=== PATIENT | female | born 1990 | race Caucasian/White ===

== ENCOUNTER 2016-05-01 05:26 | Emergency (ER) | payer MEDICAID ==
[~2016-05-01] VITALS: Ht 167.6 cm; Wt 109.3 kg
[2016-05-01 05:37] VITALS: BP 148/95
[2016-05-01 08:15] LABS: Urine Bilirubin Negative (Negative); Urine Blood Negative /uL (Negative); Urine Color Yellow (Yellow); Urine Glucose Normal (Normal); Urine Ketone Negative (Negative); Urine Nitrite Negative (Negative); Urine RBC <1 /hpf (0 - 4); Urine Squamous Epithelial Cell MOD /hpf (<5); Urine Urobilinogen Normal (Negative); Urine pH 6.5 (5.0-8.0)
== END 2016-05-01 06:52 | disposition left against medical advice (07) ==
LOC: ER 05:27
DX: M54.9 Dorsalgia, unspecified (principal); Z53.21 Procedure and treatment not carried out due to patient leaving prior to being seen by health care provider
CPT/HCPCS: 81001

== ENCOUNTER 2023-06-02 12:15 | Emergency (ER) | payer MEDICAID ==
[~2023-06-02] VITALS: Ht 167.6 cm; Wt 102.5 kg
[2023-06-02 14:01] VITALS: BP 132/89; PULSE 102; RESP 17; TEMP 97.6; O2SAT 98
[2023-06-02] MEDS: KETOROLAC TROMETH 60MG/2ML VIAL IM ONE (14:33)
[2023-06-02] MEDS ORDERED: METH-1182 PO (14:35)
[2023-06-02] MEDS ORDERED: IBUP-1456 PO (14:35)
== END 2023-06-02 14:48 | disposition home or self-care (01) ==
LOC: ER 12:15
DX: S39.012A Strain of muscle, fascia and tendon of lower back, initial encounter (principal); X58.XXXA Exposure to other specified factors, initial encounter; Y93.9 Activity, unspecified; Y92.89 Other specified places as the place of occurrence of the external cause; Y99.8 Other external cause status
CPT/HCPCS: 81002; 96372; 99283; J1885

== ENCOUNTER 2024-03-10 12:24 | Inpatient (IN) | payer MEDICAID ==
[~2024-03-10] VITALS: Ht 167.6 cm; Wt 103.3 kg
[~2024-03-10 12:24] MED LIST: IBUP-1456 PO; METH-1182 PO
--- NOTE | 2024-03-10 13:54 | ED.PDOC ---
History of Present Illness HPI Comments 34F presents to the ER w/ no prior Hx associated to the c/c of a right neck mass. Pt reports on waking up 2 weeks ago with a lump that was the size of a quarter 2 weeks ago on the right side of the neck. Patient states the mass progressively enlarged, became red and painful over the next 2 weeks. Pt reports burning and itching sensation to that area as well. She denies any difficulty breathing or difficulty swallowing. Social Hx of marijuana use, but denies tobacco and alcohol use. Denies chills, fever, N/V/D, SOB, CP or other associated symptoms, modifiers, or recent injuries at this time. Chief Complaint: Abscess Time Seen by MD: 13:45 Primary Care Provider: LEANDERK Reviewed Notes: Nurses Notes, Medications, Allergies Allergies: Coded Allergies: NO KNOWN ALLERGIES (Unverified , 06/02/23) Home Meds Active Scripts Methocarbamol (Methocarbamol) 750 Mg Tab, 750 MG PO BID, #20 TAB Prov:NICOLE RIOS 06/02/23 Ibuprofen (Ibuprofen) 800 Mg Tab, 1 TAB PO TID, #30 TAB Prov:NICOLE RIOS 06/02/23 Information Source: Patient Mode of Arrival: Ambulatory Severity: Moderate Timing: Weeks Duration: Since onset Prehospital treatment: None Past Medical History PAST MEDICAL HISTORY: Denies Surgical History: Denies all surgeries WHARF TALLY CLERK History: No Pertinent WHARF TALLY CLERK History Family History Family History: Reviewed,noncontributory to illness, Unknown Social History Smoker: Non-Smoker Alcohol: Denies ETOH Use Drugs: Denies Drug Use Lives In: Home Constitutional: reports: others (abscess); denies: chills, diaphoresis, fatigue, fever, malaise, sweats, weakness EENTM: denies: blurred vision, double vision, ear bleeding, ear discharge, ear drainage, ear pain, ear ringing, eye pain, eye redness, hearing loss, mouth pain, mouth swelling, nasal discharge, nose bleeding, nose congestion, nose pain, photophobia, tearing, throat pain, throat swelling, voice changes, others Respiratory: denies: cough, hemoptysis, orthopnea, SOB at rest, shortness of breath, SOB with excertion, stridor, wheezing, others Cardiovascular: denies: chest pain, dizzy spells, diaphoresis, Dyspnea on exertion, edema, irregular heart beat, left arm pain, lightheadedness, palpitations, PND, syncope, others Gastrointestinal: denies: abdomen distended, abdominal pain, blood streaked bowels, constipated, diarrhea, dysphagia, difficulty swallowing, hematemesis, melena, nausea, poor appetite, poor fluid intake, rectal bleeding, rectal pain, vomiting, others Genitourinary: denies: abnormal vagina bleeding, burning, dyspareunia, dysuria, flank pain, frequency, hematuria, incontinence, pain, , vagina discharge, urgency, others Neurological: denies: dizziness, fainting, headache, left sided numbness, left sided weakness, numbness, paresthesia, pre-existing deficit, right sided numbness, right sided weakness, seizure, speech problems, tingling, tremors, weakness, others Musculoskeletal: denies: back pain, gout, joint pain, joint swelling, muscle pain, muscle stiffness, neck pain, others Integumetry: denies: bruises, change in color, change in hair/nails, dryness, laceration, lesions, lumps, rash, wounds, others Allergic/Immunocompromised: denies: Difficulty Healing, Frequent Infections, Hives, Itching, others Hematologic/Lymphatic: denies: anemia, blood clots, easy bleeding, easy bruising, swollen glands, others Endocrine: denies: excessive hunger, excessive sweating, excessive thirst, excessive urination, flushing, intolerance to cold, intolerance to heat, unexplained weight gain, unexplained weight loss, others Psychiatric: denies: anxiety, bipolar disorder, depression, hopeless, panic disorder, schizophrenia, sleepless, suicidal, others All Other Systems: Reviewed and Negative Physical Exam General Appearance: Mild Distress HEENT: Other (Pupils symmetric, moist mucous membranes) Neck: Other (No posterior midline tenderness. Right neck approximate 5x5 cm erythematous, tender, firm mass. No fluctuance or discharge.) Respiratory: Lungs Clear, No Accessory Muscle Use, No Respiratory Distress, Normal Breath Sounds Cardiovascular: No Edema, No JVD, Regular Rate/Rhythm Breast Exam: Deferred Gastrointestinal: Non Tender, Soft Genitalia: Deferred Pelvic: Deferred Rectal: Deferred Extremities: Normal inspection, Normal range of motion, Non-tender, No pedal edema Neurologic: Alert (Oriented x4), Other (Anxious and tearful. Ambulatory without difficulty. No gross focal deficit.) Cerebellar Function: NOT DONE Reflexes: NOT DONE Skin: Dry, Warm, Other (Right lateral neck approximate 5x5 cm erythematous tender mass, no fluctuance or discharge) Lymphatic: NOT DONE Was a procedure done? Was a procedure done?: No Differential Dx Considerations may include: Abscess, neoplasm, sepsis, among others X-Ray, Labs, Meds, VS Vital Signs Date Time Temp Pulse Resp B/P (MAP) Pulse Ox O2 Delivery O2 Flow Rate FiO2 03/10/24 15:41 109 24 126/65 03/10/24 15:25 104 18 98 Room Air* 0 21 03/10/24 14:36 100 20 146/78 (100) 98 03/10/24 14:36 100 19 98 Room Air* 0 21 03/10/24 14:26 90 18 146/78 03/10/24 13:08 98.2 104 26 138/105 (116) 98 Lab Test 03/10/24 14:06 Range/Units White Blood Count 14.4 H 4.4-10.8 10^3/uL Red Blood Count 4.79 4.0-5.20 10^6/uL Hemoglobin 14.0 12.2-16.2 g/dL Hematocrit 42.4 36.0-46.0 % Mean Corpuscular Volume 88.6 80.0-100.0 fL Mean Corpuscular Hemoglobin 29.3 28.0-32.0 pg Mean Corpuscular Hemoglobin Concent 33.1 32.0-36.0 g/dL Red Cell Distribution Width 13.1 11.8-14.3 % Platelet Count 349 140-450 10^3/uL Mean Platelet Volume 7.7 6.9-10.8 fL Neutrophils (%) (Auto) 77.0 37.0-80.0 % Lymphocytes (%) (Auto) 14.8 10.0-50.0 % Monocytes (%) (Auto) 7.4 0.0-12.0 % Eosinophils (%) (Auto) 0.5 0.0-7.0 % Basophils (%) (Auto) 0.3 0.0-2.0 % Neutrophils # (Auto) 11.1 H 1.6-8.6 10 ^3/uL Lymphocytes # (Auto) 2.1 0.4-5.4 10 ^3/uL Monocytes # (Auto) 1.1 0-1.3 10 ^3/uL Eosinophils # (Auto) 0.1 0-0.8 10 ^3/uL Basophils # (Auto) 0 0-0.2 10 ^3/uL Nucleated Red Blood Cells 0.0 % Prothrombin Time 10.8 9.3-11.8 sec Prothrombin Time INR 1.02 0.9-1.15 Activated Partial Thromboplast Time 28.8 24.5-34.5 SEC Sodium Level 134 L 136-145 mmol/L Potassium Level 4.6 3.5-5.1 mmol/L Chloride Level 99 98-107 mmol/L Carbon Dioxide Level 29 20-31 mmol/L Anion Gap 6 5-15 Blood Urea Nitrogen 14 9-23 mg/dL Creatinine 0.79 0.550-1.02 mg/dL Glomerular Filtration Rate Calc 100 >90 mL/min BUN/Creatinine Ratio 17.7 10.0-20.0 Serum Glucose 98 74-106 mg/dL Calcium Level 9.7 8.7-10.4 mg/dL Beta HCG, Quantitative < 0.0 L 1.5-4.2 mIU/mL Current Medications Medications (Trade) Dose Ordered Sig/Danielle Route Start Time Stop Time Status Last Admin Morphine Sulfate 4 mg ONCE ONCE IV 03/10/24 14:00 03/10/24 14:01 DC 03/10/24 14:26 Ondansetron HCl (Zofran) 4 mg ONCE ONCE IV 03/10/24 14:00 03/10/24 14:01 DC 03/10/24 14:24 Sodium Chloride 1,000 ml @ 1,000 mls/hr Q1H ONCE IV 03/10/24 14:00 03/10/24 14:59 DC 03/10/24 14:28 Piperacillin Sod/ Tazobactam Sod 100 ml @ 100 mls/hr ONCE ONCE IV 03/10/24 14:00 03/10/24 14:59 DC 03/10/24 14:28 Vancomycin HCl 250 ml @ 250 mls/hr ONCE ONCE IV 03/10/24 14:00 03/10/24 14:59 DC 03/10/24 15:06 Diphtheria/ Tetanus/Acell Pertussis (Boostrix T-Dap) 0.5 ml ONCE ONCE IM 03/10/24 14:00 03/10/24 14:01 DC 03/10/24 14:27 PROCEDURE(s): NKICT - NECK WITHOUT CONTRAST REASON: eval r neck mass ORDER NUMBER(s): [id number], ACCESSION NUMBER(s): [id number] _ Procedure: CT NECK WITHOUT CONTRAST Study Date and Requested Time: 03/10/2024 03:16 PM History: eval r neck mass Comparison: None Dose: CTDI: 17.81 mGy DLP: 485.68 mGycm Technique: Multiplanar images obtained through the neck without contrast Findings: 5 x 4.5 x 4.8 cm ill-defined mass of the right neck with adjacent fat stranding position posterior to the right sternocleidomastoid at the level of C3-C5. The lesion involves the superficial aponeurosis with lateral extension to abut the adjacent skin which demonstrates asymmetric skin thickening . There is associated right neck soft tissue edema. The lesion appears inseparable from the posterior sternocleidomastoid on current noncontrast study with asymmetric prominence of the right sternocleidomastoid c ompared to the left. There is associated right-sided prominent lymph nodes measuring up to 1.2 cm which may be reactive or neoplastic . Subcentimeter left-sided neck nodes are noted. Nasopharynx, oropharynx, hypopharynx, and larynx normal in caliber without evidence of focal mass. Parotid, submandibular, and sublingual glands within normal limits. Tongue within normal limits. Thyroid gland within normal limits. No evidence of superior mediastinal lymphadenopathy. No destructive osseous lesions noted. Impression: 5 x 4.5 x 4.8 cm ill-defined right neck mass which does not measure simple fluid with adjacent fat stranding posterior to the sternocleidomastoid muscle with asymmetric prominence of the right sternocleidomastoid muscle. Contrast-enhanced imaging is recommended for further evaluation. X-Ray, Labs, Meds, VS Comment 34-year-old female with no significant past history complaining of a progressively enlarging right neck mass over the past 2 weeks Vitals remarkable for heart rate 104, respirations 26, BP 138/105 Exam remarkable for approximate 5 x 5 cm cm tender erythematous right neck mass CT neck without contrast: Impression: 5 x 4.5 x 4.8 cm ill-defined right neck mass which does not measure simple fluid with adjacent fat stranding posterior to the sternocleidomastoid muscle with asymmetric prominence of the right sternocleidomastoid muscle. Contrast-enhanced imaging is recommended for further evaluation. CT neck soft tissue with IV contrast: Pending Patient treated with the following in the ED: 1 L 0.9 normal saline IV bolus, Zosyn 4.5 g IV, vancomycin 1 g IV, morphine 4 mg IV, Zofran 4 mg IV, Tdap 0.5 mL IM On re-evaluation, patient states pain has slightly improved. Vitals were stable. Plan is to admit the patient for IV antibiotics and surgical evaluation. Time of 1ST Reevaluation: 14:15 Reevaluation 1ST: Unchanged Patient Education/Counseling: Diagnosis, Treatment, Prognosis Family Education/Counseling: No Family Present Additional Information I reviewed the following notes from the pt's past medical encounters: 06/02/23 The following tests were ordered, and results were reviewed by me: labs, LAB and CT I reviewed and agreed with the following test results read by other providers: CT I discussed treatments and results with medical personnel and: (consultants, fam, etc) Departure 1 Departure Time of Disposition: 16:34 Impression: Primary Impression: Mass of right side of neck Additional Impression: Cellulitis and abscess of neck Disposition: ADMITTED INPATIENT Admit to: Med Surg Condition: Guarded Critical Care Note Critical Care Time?: No Stability Stability form required: No Heart Score Heart Score: Heart Score Response (Comments) Value History N/A 0 EKG N/A 0 Age N/A 0 Risk Factors N/A 0 Troponin N/A 0 Total 0 I personally scribed for KASHMIR SALINAS MD ([email or web address]) on 03/10/24 at 13:54. Electronically submitted by Rosalio Bills ([email or web address]). KASHMIR SALINAS MD Mar 10, 2024 13:54
[2024-03-10] MEDS: ONDANSETRON HCL 4 MG/2 ML VIAL IV ONE (14:24)
[2024-03-10] MEDS: MORPHINE SULFATE 4 MG/ML SYR/VIAL IV ONE ×2 (14:26→17:08)
[2024-03-10] MEDS: TETANUS-DIPTH-ACEL PERTUSSIS 0.5ML SYR Tdap IM ONE (14:27)
[2024-03-10] MEDS: SODIUM CHLORIDE 0.9% 1,000 ML IV ONE (14:28)
[2024-03-10] MEDS: PIPERACILLIN-TAZO 4.5GM 100 ML IV ONE (14:28)
[2024-03-10 14:36] VITALS: PULSE 100; RESP 19; O2SAT 98
[2024-03-10 14:38] LABS: Basophils # (auto) 0 10 ^3/uL (0-0.2); Basophils % (auto) 0.3 % (0.0-2.0); Eosinophils # (auto) 0.1 10 ^3/uL (0-0.8); Eosinophils % (auto) 0.5 % (0.0-7.0); Hematocrit 42.4 % (36.0-46.0); Lymphocytes # (auto) 2.1 10 ^3/uL (0.4-5.4); Lymphocytes % (auto) 14.8 % (10.0-50.0); Mean Corpuscular Hemoglobin 29.3 pg (28.0-32.0); Mean Corpuscular Hgb Conc. 33.1 g/dL (32.0-36.0); Mean Corpuscular Volume 88.6 fL (80.0-100.0); Monocytes # (auto) 1.1 10 ^3/uL (0-1.3); Monocytes % (auto) 7.4 % (0.0-12.0); Neutrophils # (auto) 11.1 10 ^3/uL (1.6-8.6); Platelet Count (auto) 349 10^3/uL (140-450); Red Blood Cells 4.79 10^6/uL (4.0-5.20); Red Cell Distribution Width 13.1 % (11.8-14.3); White Blood Cell 14.4 10^3/uL (4.4-10.8)
[2024-03-10 14:49] LABS: Chloride 99 mmol/L (98-107); INR 1.02 (0.9-1.15); Partial Thromboplastin Time 28.8 SEC (24.5-34.5); Potassium 4.6 mmol/L (3.5-5.1); Prothrombin Time 10.8 sec (9.3-11.8)
[2024-03-10 14:50] LABS: Anion Gap 6 (5-15); Calcium 9.7 mg/dL (8.7-10.4); Carbon Dioxide 29 mmol/L (20-31)
[2024-03-10 14:55] LABS: BUN/Creatinine Ratio 17.7 (10.0-20.0); Blood Urea Nitrogen 14 mg/dL (9-23); Glucose 98 mg/dL (74-106)
[2024-03-10 14:57] LABS: Sodium 134 mmol/L (136-145)
[2024-03-10] MEDS: VANCOMYCIN 1GM/250ML KIT 250 ML IV ONE (15:06)
[2024-03-10 15:25] VITALS: PULSE 104; RESP 18; O2SAT 98
--- NOTE | 2024-03-10 16:13 | DVH ---
_ Procedure: CT NECK WITHOUT CONTRAST Study Date and Requested Time: 03/10/2024 03:16 PM History: eval r neck mass Comparison: None Dose: CTDI: 17.81 mGy DLP: 485.68 mGycm Technique: Multiplanar images obtained through the neck without contrast Findings: 5 x 4.5 x 4.8 cm ill-defined mass of the right neck with adjacent fat stranding position posterior to the right sternocleidomastoid at the level of C3-C5. The lesion involves the superficial aponeurosis with lateral extension to abut the adjacent skin which demonstrates asymmetric skin thickening . Th ere is associated right neck soft tissue edema. The lesion appears inseparable from the posterior sternocleidomastoid on current noncontrast study wi th asymmetric prominence of the right sternocleidomastoid compared to the left. There is associated right-sided prominent lymph nodes measuring up to 1.2 cm which may be reactive or neoplastic . Subcentimeter left-sided neck nodes are noted. Nasopharynx, oropharynx, hypopharynx, and larynx normal in caliber without evidence of focal mass. Pa rotid, submandibular, and sublingual glands within normal limits. Tongue within normal limits. Thyroid gland within normal limits. No evidence of superior mediastinal lymphadenopathy. No destructive osseous lesions noted. Impression: 5 x 4.5 x 4.8 cm ill-defined right neck mass which does not measure simple fluid with adjacent fat st randing posterior to the sternocleidomastoid muscle with asymmetric prominence of the right sternocle idomastoid muscle. Contrast-enhanced imaging is recommended for further evaluation.
[2024-03-10] MEDS: IOHEXOL 300 MG/ML 100ML BOTTLE IJ ONE (18:20)
--- NOTE | 2024-03-10 18:59 | DVH ---
Accession Number: [id number] Clinical History: R neck mass Comparison: CT NECK WITHOUT CONTRAST on DOS: 03/10/24 Technique: After the intravenous administration of intravenous contrast, multi-slice CT scan of the n isaac was performed without complication. Radiation Dose Information: CT Dose: CTDI volume is 25.87 mGy. Dose-length product is 736.26 mGy*cm Omnipaque 300: 100 mL Findings: The nasopharynx, oropharynx, hypopharynx, esophagus, and larynx demonstrate normal patency and contour without evidence of a soft tissue mass at this time. Bilaterally, the parotid, submandibular, and sublingual glands are normal in their size, shape, and a ttenuation without evidence of calcification. The visualized oral tongue, tongue base, and floor of mouth regions demonstrate no obvious mass or ab normal enhancement. 6.4 x 4 cm rim enhancing mass in the right cervical soft tissues consistent with an abscess or necrot ic mass. This appears lateral and posterior to the sternocleidomastoid muscle on the right. This is l arger than on previous study of 03/10/2024 subcutaneous edema is noted on the right. After the administration of contrast, no focal areas of abnormal enhancement are demonstrated. Impression: 1. Enlarging mass in the right cervical soft tissues when compared to 03/10/2024. Currently measures 6.4 x 4 cm 3.6 cm front to back. On study of 03/10/2024 it measured approximately 5 x 4.5 x 4.8 cm. N o significant follow up in the nasopharynx or oropharynx is seen.
[2024-03-10] MEDS ORDERED: DOCUSATE SOD 100 MG CAP PO PRN (19:30)
[2024-03-10] MEDS ORDERED: MORPHINE SULFATE INJ 2 MG/ml SYRG IV PRN ×2 (19:30→22:45)
[2024-03-10] MEDS ORDERED: HYDROcodone-ACET 5/325MG TAB PO PRN (19:30)
[2024-03-10] MEDS: SODIUM CHLORIDE 0.9% 1,000 ML IV SCH (19:30)
[2024-03-10] MEDS ORDERED: VANCOMYCIN PER PHARMACY 0 MG IV SCH (19:30)
[2024-03-10] MEDS ORDERED: ONDANSETRON HCL 4 MG/2 ML VIAL IV PRN (19:30)
[2024-03-10] MEDS ORDERED: IBUPROFEN 600 MG TAB PO PRN (19:30)
[2024-03-10 20:00] VITALS: BP 128/61; PULSE 100; RESP 19; TEMP 98.4; O2SAT 97
[2024-03-10] MEDS: VANCOMYCIN 1GM/250mL NS or D5W KIT IV ONE (21:07)
[2024-03-10] MEDS ORDERED: NITROGLYCERIN 0.4 MG SL TAB SL PRN (22:45)
[2024-03-10] MEDS: PIPERACILLIN-TAZOB 3.375GM 100 ML IV SCH (22:50)
--- NOTE | 2024-03-10 22:58 | DVHHP2 ---
History of Present Illness Reason for Visit: Mass of right side of neck History of Present Illness The patient is a 34 female who denies past medical history presented to [facility] ED presented to [facility] ED for evaluation of right neck mass. Patient reports she noticed mass to the right neck 2 weeks ago when she woke up progressively, became rate painful, rating 8/10 numeric scale, burning and itchy sensation, getting worse that prompted this visit. Patient was seen and evaluated in the ED, laboratory data shows elevated WBC 14.4, platelets 349, sodium 134, potassium 4.6, BUN 14, creatinine 0.79, glucose 98, lactic acid 0.8, blood pressure 130/60, heart rate 102, temperature 98.2 F, O2 saturation 98% on room air. Neck CT revealing enlarged mass in the right cervical soft tissues, currently measures 6.4 x 4 cm, 3.6 cm front to back. Patient was started IV antibiotic regimen vancomycin, please see medication orders section in the computer. On my assessment, patient denied chest pain, no headache, no dizziness, no diaphoresis, no palpitation, no shortness of breath, no nausea, no vomiting, no fever, no chills. Patient was admitted for further evaluation and medical management. Past Medical History Denies past medical history Past Surgical History Denies all surgeries Family History Reviewed, noncontributory to the management of this case. Past Social History The patient lives at home, denies smoking, alcohol or illicit drugs abuse. Review of Systems Constitutional: Yes: Weakness; No: Fever, Chills, Sweats, Malaise, Other Eyes: No: Pain, Vision change, Conjunctivae inflammation, Eyelid inflammation, Other, Redness ENT: Other (Neck swelling/pain); No: Ear pain, Ear discharge, Nose pain, Nose discharge, Nose congestion, Mouth pain, Mouth swelling, Throat pain, Throat swelling Respiratory: No: Cough, Dry, Shortness of breath, SOB with excertion, Wheezing, Hemoptysis, Pleuritic Pain, Sputum, Wheezing, Other Cardiovascular: No: Chest Pain, Palpitations, Orthopnea, Paroxysmal Noc. Dyspnea, Edema, Lt Headedness, Other Gastrointestinal: No: Nausea, Vomiting, Abdominal Pain, Diarrhea, Constipation, Melena, Hematochezia, Other Genitourinary: No Dysuria, No Frequency, No Incontinence, No Hematuria, No Retention, No Other Musculoskeletal: No: other, neck pain, shoulder pain, arm pain, back pain, hand pain, leg pain, foot pain Skin: No: Rash, Lesions, Jaundice, Bruising, Other Neurological: No: Weakness, Numbness, Incoordination, Change in speech, Confusion, Seizures, Other Allergies: Coded Allergies: NO KNOWN ALLERGIES (Unverified , 06/02/23) Medications Current Medications Medications Dose Ordered Sig/Danielle Route Start Time Stop Time Status Last Admin Dose Admin Vancomycin HCl 0 ml @ 0 mls/hr UD IV 03/10/24 19:30 UNV Piperacillin Sod/ Tazobactam Sod 100 ml @ 25 mls/hr Q8HR IV 03/10/24 22:00 Ibuprofen 600 mg Q6HP PRN PO 03/10/24 19:30 Sodium Chloride 1,000 ml @ 60 mls/hr [id number] IV 03/10/24 19:30 Acetaminophen/ Hydrocodone Bitart 1 tab Q4HP PRN PO 03/10/24 19:30 Ondansetron HCl 4 mg Q4HP PRN IV 03/10/24 19:30 Docusate Sodium 100 mg BIDPRN PRN PO 03/10/24 19:30 Morphine Sulfate 2 mg Q4HPRN PRN IV 03/10/24 19:30 Exam Vital Signs Vital Signs Date Time Temp Pulse Resp B/P (MAP) Pulse Ox O2 Delivery O2 Flow Rate FiO2 03/10/24 19:00 102 20 130/60 (83) 95 03/10/24 17:05 98.2 98.2 03/10/24 15:25 Room Air* 0 21 General Appearance: Alert, Oriented X3, Cooperative, No acute distress HEENT: Atraumatic, PERRLA, EOMI, Mucous membr. moist/pink, Other (Right neck mass) Respiratory: Clear to auscultation, Normal air movement Cardiovascular: Regular rate, Normal S1, Normal S2, No murmurs Abdominal: Normal bowel sounds, Soft, No tenderness, No hepatospenomegaly, No masses Extremities: No clubbing, No cyanosis, No edema, Normal pulses, No tenderness/swelling Skin: No rashes, No breakdown, No significant lesion Neuro: Normal speech, Normal tone, Sensation intact, Cranial nerves 3-12 NL, Reflexes 2+, Other (Generalized weakness) Psych/Mental Status: Mental status NL, Mood NL Labs/Xrays Labs Test 03/10/24 16:30 03/10/24 14:06 Range/Units Lactic Acid Level 0.8 0.4-2.0 mmol/L White Blood Count 14.4 H 4.4-10.8 10^3/uL Red Blood Count 4.79 4.0-5.20 10^6/uL Hemoglobin 14.0 12.2-16.2 g/dL Hematocrit 42.4 36.0-46.0 % Mean Corpuscular Volume 88.6 80.0-100.0 fL Mean Corpuscular Hemoglobin 29.3 28.0-32.0 pg Mean Corpuscular Hemoglobin Concent 33.1 32.0-36.0 g/dL Red Cell Distribution Width 13.1 11.8-14.3 % Platelet Count 349 140-450 10^3/uL Mean Platelet Volume 7.7 6.9-10.8 fL Neutrophils (%) (Auto) 77.0 37.0-80.0 % Lymphocytes (%) (Auto) 14.8 10.0-50.0 % Monocytes (%) (Auto) 7.4 0.0-12.0 % Eosinophils (%) (Auto) 0.5 0.0-7.0 % Basophils (%) (Auto) 0.3 0.0-2.0 % Neutrophils # (Auto) 11.1 H 1.6-8.6 10 ^3/uL Lymphocytes # (Auto) 2.1 0.4-5.4 10 ^3/uL Monocytes # (Auto) 1.1 0-1.3 10 ^3/uL Eosinophils # (Auto) 0.1 0-0.8 10 ^3/uL Basophils # (Auto) 0 0-0.2 10 ^3/uL Nucleated Red Blood Cells 0.0 % Prothrombin Time 10.8 9.3-11.8 sec Prothrombin Time INR 1.02 0.9-1.15 Activated Partial Thromboplast Time 28.8 24.5-34.5 SEC Sodium Level 134 L 136-145 mmol/L Potassium Level 4.6 3.5-5.1 mmol/L Chloride Level 99 98-107 mmol/L Carbon Dioxide Level 29 20-31 mmol/L Anion Gap 6 5-15 Blood Urea Nitrogen 14 9-23 mg/dL Creatinine 0.79 0.550-1.02 mg/dL Glomerular Filtration Rate Calc 100 >90 mL/min BUN/Creatinine Ratio 17.7 10.0-20.0 Serum Glucose 98 74-106 mg/dL Calcium Level 9.7 8.7-10.4 mg/dL Beta HCG, Quantitative < 0.0 L 1.5-4.2 mIU/mL PATIENT: JORGE MARCELO ACCT: [id number] UNIT: [id number] : 1990 LOC: ER ROOM / BED: / AGE / SEX: 34 / F ADM STATUS: REG ER SERVICE 1621 ORDERING PHYSICIAN: KASHMIR SALINAS MD PROCEDURE(s): NK2CT - NECK WITH CONTRAST SOFT REASON: R neck mass ORDER NUMBER(s): [id number], ACCESSION NUMBER(s): [id number] Accession Number: [id number] Clinical History: R neck mass Comparison: CT NECK WITHOUT CONTRAST on DOS: 03/10/24 Technique: After the intravenous administration of intravenous contrast, multi- slice CT scan of the neck was performed without complication. Radiation Dose Information: CT Dose: CTDI volume is 25.87 mGy. Dose-length product is 736.26 mGy*cm Omnipaque 300: 100 mL Findings: The nasopharynx, oropharynx, hypopharynx, esophagus, and larynx demonstrate normal patency and contour without evidence of a soft tissue mass at this time. Bilaterally, the parotid, submandibular, and sublingual glands are normal in their size, shape, and attenuation without evidence of calcification. The visualized oral tongue, tongue base, and floor of mouth regions demonstrate no obvious mass or abnormal enhancement. 6.4 x 4 cm rim enhancing mass in the right cervical soft tissues consistent with an abscess or necrotic mass. This appears lateral and posterior to the sternocleidomastoid muscle on the right. This is larger than on previous study of 03/10/2024 subcutaneous edema is noted on the right. After the administration of contrast, no focal areas of abnormal enhancement are demonstrated. Impression: 1. Enlarging mass in the right cervical soft tissues when compared to 03/10/2024. Currently measures 6.4 x 4 cm 3.6 cm front to back. On study of 03/10/2024 it measured approximately 5 x 4.5 x 4.8 cm. No significant follow up in the nasopharynx or oropharynx is seen. ORDERING PHYSICIAN: KASHMIR SALINAS MD PROCEDURE(s): NKICT - NECK WITHOUT CONTRAST REASON: eval r neck mass ORDER NUMBER(s): [id number], ACCESSION NUMBER(s): [id number] Procedure: CT NECK WITHOUT CONTRAST Study Date and Requested Time: 03/10/2024 03:16 PM History: eval r neck mass Comparison: None Dose: CTDI: 17.81 mGy DLP: 485.68 mGycm Technique: Multiplanar images obtained through the neck without contrast Findings: 5 x 4.5 x 4.8 cm ill-defined mass of the right neck with adjacent fat stranding position posterior to the right sternocleidomastoid at the level of C3-C5. The lesion involves the superficial aponeurosis with lateral extension to abut the adjacent skin which demonstrates asymmetric skin thickening. There is associated right neck soft tissue edema. The lesion appears inseparable from the posterior sternocleidomastoid on current noncontrast study with asymmetric prominence of the right sternocleidomastoid compared to the left. There is associated right-sided prominent lymph nodes measuring up to 1.2 cm which may be reactive or neoplastic. Subcentimeter left-sided neck nodes are noted. Nasopharynx, oropharynx, hypopharynx, and larynx normal in caliber without evidence of focal mass. Parotid, submandibular, and sublingual glands within normal limits. Tongue within normal limits. Thyroid gland within normal limits. No evidence of superior mediastinal lymphadenopathy. No destructive osseous lesions noted. Impression: 5 x 4.5 x 4.8 cm ill-defined right neck mass which does not measure simple fluid with adjacent fat stranding posterior to the sternocleidomastoid muscle with asymmetric prominence of the right sternocleidomastoid muscle. Contrast-enhanced imaging is recommended for further evaluation. Assessment/Plan Assessment/Plan Mass of right side of neck Cellulitis and abscess of neck Generalized weakness Leukocytosis, unspecified Plan 1. Admit to med surge unit 2. Breathing treatment 3. Pain control management 4. IV antibiotic management 5. Management of fluids and electrolytes 6. Consultation for hospitalist 7. Diagnostic test neck CT 8. DVT prophylaxis-on SCDs 9. Repeat labs CBC, CMP in a.m. 10. Continue with current medical management 11. Treatment plan discussed with patient and RN. Patient verbalized unde rstanding. Plan discussed with: Patient, Other (RN) My Orders Orders - JEREMIAS HUNTER DNP Procedure Category Date Status Time Vancomycin Per PHA 03/10/24 Pending Pharmacy 19:30 Piperacillin-Tazob PHA 03/10/24 In Process 3.375gm (Zosyn 3.375g 22:00 Ibuprofen Tablet PHA 03/10/24 In Process (Motrin Tablet) 19:30 Allergies GLENN 03/10/24 In Process 19:27 Code Status CODE 03/10/24 Transmitted 19:27 Sodium Chloride 0.9% PHA 03/10/24 In Process 19:30 Oxygen Per Hour RT 03/10/24 Transmitted 19:27 Hydrocodone-Acet PHA 03/10/24 In Process 5/325mg Tab ([place] 19:30 Ondansetron Hcl PHA 03/10/24 In Process (Zofran) 19:30 Docusate Sodium PHA 03/10/24 In Process Capsule (Colace 19:30 Complete Blood Count LAB 03/11/24 Verified 04:00 Comprehensive LAB 03/11/24 Verified Metabolic Panel 04:00 Cardiac DIET 03/11/24 Transmitted Diet-2gna,Lofat,Lochol Breakfast Condition: Serious GLENN 03/10/24 In Process 19:27 Bedrest With Bathroom GLENN 03/10/24 In Process Privileg 19:27 Morphine Sulfate PHA 03/10/24 In Process Injection 19:30 Sequential GLENN 03/10/24 In Process Compression Device Problem List: (1) Mass of right side of neck (2) Cellulitis and abscess of neck (3) Generalized weakness (4) Leukocytosis, unspecified Date of Service: Mar 10, 2024 Billing Provider: JEREMIAS HUNTER DNP Common Visit Codes: 23861-[id number] INP/OBS CARE (HIGH) JEREMIAS HUNTER DNP Mar 10, 2024 22:58
== END 2024-03-10 22:50 | disposition left against medical advice (07) | DRG 383 ==
LOC: ER 12:24 → OVERFLOW 19:00
PROVIDERS: ADMIT Nurse Practitioner Family; ATTEND Nurse Practitioner Family
DX: L03.221 Cellulitis of neck (principal); D72.829 Elevated white blood cell count, unspecified; L02.11 Cutaneous abscess of neck; Z53.29 Procedure and treatment not carried out because of patient's decision for other reasons; Z79.899 Other long term (current) drug therapy; R22.1 Localized swelling, mass and lump, neck
CPT/HCPCS: 36415; 70490; 70491; 80048; 83605; 84702; 85025; 85610; 85730; 90715; G0378; J2405; J2543